=== PATIENT | female | born 2000 | race Caucasian/White ===

== ENCOUNTER 2019-11-02 10:33 | Outpatient (CLI) | payer OTHER, SELFPAY ==
[2019-11-02 11:13] LABS: Potassium 3.4 mmol/L (3.4-5.0)
[2019-11-02 11:25] LABS: LDL Cholesterol Direct 107 mg/dL
[2019-11-02 11:54] LABS: Alanine Aminotransferase 14 U/L (4-35); Albumin Level 4.3 g/dL (3.5-5.1); Alkaline Phosphatase 68 U/L (38-126); Aspartate Amino Transferase 16 U/L (14-36); Blood Urea Nitrogen 17 mg/dL (7-17); Calcium 9.1 mg/dL (8.4-10.2); Carbon Dioxide 28 mmol/L (22-30); Chloride 97 mmol/L (98-107); Cholesterol 190 mg/dL (0-200); Estimated Glomerular Filt Rate > 60; Glucose 179 mg/dL (65-105); HDL Direct 54 mg/dL; Sodium 136 mmol/L (137-145); Triglycerides 91 mg/dL (<150)
[2019-11-02 12:07] LABS: Creatinine Urine 117.9 mg/dL
[2019-11-02 12:23] LABS: Free T4 Free Thyroxine 1.07 ng/mL (0.78-2.19)
[2019-11-02 13:30] LABS: MALB Creatinine Ratio < 5.1 mg/g (0-30); Microalbumin Urine Random < 6.0 mg/L (0-16.7)
== END 2019-11-02 10:34 | disposition home or self-care (01) ==
PROVIDERS: PCP Physician Assistant; Visit Provider Physician Assistant
DX: E03.9 Hypothyroidism, unspecified (principal); E10.65 Type 1 diabetes mellitus with hyperglycemia
CPT/HCPCS: 36415; 80053; 80061; 82043; 84439; 84443